=== PATIENT | male | born 1950 | race Caucasian/White ===

== ENCOUNTER 2017-01-18 15:56 | Emergency (ER) | payer OTHER ==
[~2017-01-18] VITALS: Ht 167.6 cm; Wt 81.5 kg
[~2017-01-18 15:56] MED LIST: GLIM4 PO; LISI-661 PO; METF500T4 PO; PIOG30TA2 PO
[2017-01-18 16:27] LABS: GLUCOSE,POINT OF CARE 186 MG/DL (70-110)
[2017-01-18] MEDS ORDERED: INSULIN SQ (16:27)
[2017-01-18 17:35] LABS: INFLUENZA TYPE B NEGATIVE FOR TYPE B (NEGATIVE)
[2017-01-18] MEDS ORDERED: CefTRIAXone SODIUM 1 GM/VIAL IM ONE (19:15)
[2017-01-18] MEDS ORDERED: LIDOCAINE HCL/PF 1% 2 ML VIAL IM ONE (19:15)
[2017-01-18] MEDS ORDERED: DEXAMETHASONE SOD PHOS 4 MG/ML 5 ML VIAL IM ONE (19:15)
[2017-01-18] MEDS ORDERED: IBUPROFEN 600 MG TABLET PO ONE (19:30)
[2017-01-18] MEDS ORDERED: ACETAMINOPHEN 500 MG TABLET PO ONE (19:30)
[2017-01-18 19:45] VITALS: BP 125/74
== END 2017-01-18 19:48 | disposition home or self-care (01) ==
LOC: EMS 15:59
DX: J40 Bronchitis, not specified as acute or chronic (principal); E11.9 Type 2 diabetes mellitus without complications; I10 Essential (primary) hypertension
CPT/HCPCS: 71010; 82962; 87804; 96372; 99285; J0696; J1100; J3490

== ENCOUNTER 2017-01-31 12:25 | Inpatient (IN) | payer OTHER ==
[~2017-01-31] VITALS: Ht 167.6 cm; Wt 77.9 kg
[~2017-01-31 12:25] MED LIST changes: +INSULIN SQ
[2017-01-31 12:51] LABS: GLUCOSE,POINT OF CARE 189 MG/DL (70-110)
[2017-01-31 14:17] LABS: GLUCOSE,POINT OF CARE 196 MG/DL (70-110)
[2017-01-31] MEDS ORDERED: SODIUM CHLORIDE 0.9% 100 ML ONE (14:35)
[2017-01-31] MEDS ORDERED: IOVERSOL 350 MG/ML 100 ML VIAL ONE (14:35)
[2017-01-31 15:05] LABS: LYMPHOCYTES # (AUTO) 1.3 K/uL (1.0-4.8)
[2017-01-31 15:06] LABS: BASOPHILS % (AUTO) 0.8 % (0.0-2.0); EOSINOPHILS % (AUTO) 4.7 % (1.0-6.0); HEMOGLOBIN 13.2 g/dL (13.5-17.5); LYMPHOCYTES % (AUTO) 18.8 % (22.0-44.0); MEAN CORPUSCULAR HEMOGLOBIN 25.9 pg (26.0-34.0); MEAN CORPUSCULAR VOLUME 78 fL (80-100); MONOCYTES # (AUTO) 0.5 K/uL (0.1-1.0); MONOCYTES % (AUTO) 7.3 % (2.0-9.0); NEUTROPHILS # (AUTO) 4.6 K/uL (1.8-7.7); NEUTROPHILS % (AUTO) 68.4 % (40.0-70.0); PLATELET COUNT (AUTO) 152 K/uL (150-450); RED BLOOD CELL COUNT(AUTO) 5.09 MIL/uL (4.50-5.90); RED CELL DISTRIBUTION WIDTH 13.6 % (11.5-14.5); WHITE BLOOD COUNT (AUTO) 6.7 K/uL (4.5-11.0)
[2017-01-31 15:12] LABS: ANION GAP 8 mmol/L (8-16); CALCIUM, TOTAL 8.9 mg/dL (8.8-10.5); CARBON DIOXIDE 29 mmol/L (22-29); CHLORIDE 101 mmol/L (98-107); CREATININE 0.91 mg/dL (0.60-1.30); GLOMERULAR FILTR. RATE CALC > 60 mL/min (>60); POTASSIUM 4.3 mmol/L (3.5-5.1); SODIUM SERUM 138 mmol/L (136-145); UREA NITROGEN, BLOOD 20 mg/dL (7-18)
[2017-01-31 15:15] LABS: PROTHROMBIN TIME 10.9 SEC (9.4-11.6)
[2017-01-31 15:37] LABS: ALANINE AMINOTRANSFERASE 26 U/L (12-78); ALBUMIN 3.5 g/dL (3.4-5.0); ASPARTATE AMINOTRANSFERASE 10 U/L (15-37); BILIRUBIN,TOTAL 0.4 mg/dL (0.1-1.0); CREATINE KINASE MB 2.1 ng/mL (0-5); CREATINE KINASE, TOTAL 92 U/L (39-308); TOTAL PROTEIN, SERUM 7.1 g/dL (6.4-8.2)
[2017-01-31 16:13] LABS: APPEARANCE,URINE CLEAR (CLEAR); GLUCOSE, URINE (UA) >=1000 mg/dL (NEGATIVE); KETONES,URINE NEGATIVE (NEGATIVE); LEUKOCYTE ESTERASE ,URINE SMALL (NEGATIVE); OCCULT BLOOD,URINE NEGATIVE (NEGATIVE); PROTEIN,URINE NEGATIVE (NEGATIVE)
[2017-01-31 16:15] LABS: ADD UA MICROSCOPIC YES
[2017-01-31] MEDS ORDERED: ASPIRIN 81 MG CHEWABLE TABLET PO ONE (16:15)
[2017-01-31 16:32] LABS: RBC,URINE None Seen /HPF (0-2); SQUAMOUS EPITHELIAL CELL,UR Few /LPF (None Seen); WBC,URINE 26-50 /HPF (0-5)
[2017-01-31] MEDS ORDERED: ACETAMINOPHEN 325 MG TABLET PO PRN (17:30)
[2017-01-31] MEDS ORDERED: ONDANSETRON HCL 4 MG/2 ML VIAL IVP PRN (17:30)
[2017-01-31] MEDS ORDERED: 0.9% SODIUM CHLORIDE 10 ML SYRINGE IVP PRN (17:30)
[2017-01-31 20:48] VITALS: BP 136/81
[2017-01-31] MEDS ORDERED: DEXTROSE 50%-WATER 25 GM/50 ML SYRINGE IVP PRN ×2 (23:00)
[2017-01-31] MEDS ORDERED: INSULIN REGULAR, HUMAN 100 UNITS/ML SQ PRN (23:00)
[2017-01-31] MEDS: INSULIN ASPART 100 UNITS/ML SQ PRN (23:06)
[2017-01-31] MEDS: ATORVASTATIN CALCIUM 10 MG TABLET PO SCH (23:07)
[2017-01-31 23:11] VITALS: BP 128/79
[2017-02-01 04:02] VITALS: BP 143/80
[2017-02-01] MEDS: INSULIN ASPART 100 UNITS/ML SQ PRN ×3 (05:44→21:27)
[2017-02-01 07:33] LABS: BASOPHILS # (AUTO) 0.04 K/uL (0.00-0.20); BASOPHILS % (AUTO) 0.6 % (0.0-2.0); EOSINOPHILS # (AUTO) 0.35 K/uL (0.00-0.70); EOSINOPHILS % (AUTO) 4.98 % (1.0-6.0); HEMATOCRIT 40.8 % (41-53); HEMOGLOBIN 13.7 g/dL (13.5-17.5); LYMPHOCYTES # (AUTO) 1.3 K/uL (1.0-4.8); LYMPHOCYTES % (AUTO) 18.9 % (22.0-44.0); MEAN CORPUSCULAR HEMOGLOBIN 26.3 pg (26.0-34.0); MEAN CORPUSCULAR HGB CONC 33.4 G/dL (31.0-37.0); MEAN CORPUSCULAR VOLUME 79 fL (80-100); MONOCYTES # (AUTO) 0.5 K/uL (0.1-1.0); MONOCYTES % (AUTO) 7.1 % (2.0-9.0); NEUTROPHILS # (AUTO) 4.8 K/uL (1.8-7.7); NEUTROPHILS % (AUTO) 68.5 % (40.0-70.0); PLATELET COUNT (AUTO) 150 K/uL (150-450); RED BLOOD CELL COUNT(AUTO) 5.19 MIL/uL (4.50-5.90); RED CELL DISTRIBUTION WIDTH 13.9 % (11.5-14.5)
[2017-02-01 07:35] VITALS: BP 144/89
[2017-02-01 07:42] LABS: HEMOGLOBIN A1C 9.9 % (4.5-6.2)
[2017-02-01 07:59] LABS: ALANINE AMINOTRANSFERASE 24 U/L (12-78); ALBUMIN 3.4 g/dL (3.4-5.0); ANION GAP 5 mmol/L (8-16); ASPARTATE AMINOTRANSFERASE 12 U/L (15-37); BILIRUBIN,TOTAL 0.6 mg/dL (0.1-1.0); CALCIUM, TOTAL 8.6 mg/dL (8.8-10.5); CARBON DIOXIDE 29 mmol/L (22-29); CHLORIDE 101 mmol/L (98-107); CHOL/HDL RATIO 3.7 (4.2-7.3); CREATININE 0.73 mg/dL (0.60-1.30); GLOMERULAR FILTR. RATE CALC > 60 mL/min (>60); POTASSIUM 3.9 mmol/L (3.5-5.1); SODIUM SERUM 135 mmol/L (136-145); TOTAL PROTEIN, SERUM 6.9 g/dL (6.4-8.2); UREA NITROGEN, BLOOD 16 mg/dL (7-18)
[2017-02-01] MEDS: MetFORMIN HCL 500 MG TABLET PO SCH ×2 (08:00→17:51)
[2017-02-01] MEDS: ASPIRIN 325 MG TABLET PO SCH (08:36)
[2017-02-01] MEDS: PIOGLITAZONE HCL 30 MG TABLET PO SCH (08:36)
[2017-02-01] MEDS: PANTOPRAZOLE SODIUM 40 MG DR TABLET PO SCH (08:36)
[2017-02-01] MEDS: LISINOPRIL 10 MG TABLET PO SCH (08:36)
[2017-02-01] MEDS: GLIMEPIRIDE 4 MG TABLET PO SCH ×2 (08:36→17:51)
[2017-02-01 09:47] LABS: THYROID STIMULATING HORMONE 2.33 uIU/mL (0.36-3.74)
[2017-02-01] MEDS ORDERED: MAGNESIUM SULFATE 2 GM in DEXTROSE 5%-WATER 50 ML IV ONE (11:15)
[2017-02-01 11:34] VITALS: BP 145/84
[2017-02-01 12:22] LABS: GLUCOSE,POINT OF CARE 169 MG/DL (70-110)
[2017-02-01] MEDS ORDERED: SODIUM CHLORIDE 0.9% 100 ML ONE (15:01)
[2017-02-01 15:28] VITALS: BP 124/70
[2017-02-01 18:12] LABS: GLUCOSE,POINT OF CARE 166 MG/DL (70-110)
[2017-02-01 18:12] LABS: GLUCOSE COMMENT 1 Received Meds; GLUCOSE,POINT OF CARE 178 MG/DL (70-110)
[2017-02-01 18:12] LABS: GLUCOSE,POINT OF CARE 146 MG/DL (70-110)
[2017-02-01 19:45] VITALS: BP 134/84
[2017-02-01] MEDS: ATORVASTATIN CALCIUM 10 MG TABLET PO SCH (21:23)
[2017-02-01 23:07] LABS: GLUCOSE COMMENT 1 Received Meds; GLUCOSE,POINT OF CARE 222 MG/DL (70-110)
[2017-02-01 23:47] VITALS: BP 130/76
[2017-02-02 04:19] VITALS: BP 129/72
[2017-02-02] MEDS: INSULIN ASPART 100 UNITS/ML SQ PRN ×3 (06:12→18:55)
[2017-02-02] MEDS: MetFORMIN HCL 500 MG TABLET PO SCH ×2 (08:00→18:00)
[2017-02-02 08:19] VITALS: BP 136/68
[2017-02-02] MEDS: LISINOPRIL 10 MG TABLET PO SCH (09:37)
[2017-02-02] MEDS: GLIMEPIRIDE 4 MG TABLET PO SCH ×2 (09:37→18:40)
[2017-02-02] MEDS: PIOGLITAZONE HCL 30 MG TABLET PO SCH (09:37)
[2017-02-02] MEDS: PANTOPRAZOLE SODIUM 40 MG DR TABLET PO SCH (09:38)
[2017-02-02] MEDS: ASPIRIN 325 MG TABLET PO SCH (09:38)
[2017-02-02 11:40] VITALS: BP 125/68
[2017-02-02] MEDS: ACETAMINOPHEN 325 MG TABLET PO PRN ×2 (11:58→20:37)
[2017-02-02 15:16] VITALS: BP 98/52
[2017-02-02 15:21] LABS: GLUCOSE COMMENT 1 Received Meds; GLUCOSE,POINT OF CARE 188 MG/DL (70-110)
[2017-02-02 20:17] VITALS: BP 95/53
[2017-02-02] MEDS: ATORVASTATIN CALCIUM 10 MG TABLET PO SCH (20:37)
[2017-02-03] VITALS (7 sets, daily range): BP systolic 109–126; BP diastolic 57–68
[2017-02-03 02:42] LABS: GLUCOSE,POINT OF CARE 110 MG/DL (70-110)
[2017-02-03] MEDS: INSULIN ASPART 100 UNITS/ML SQ PRN (05:58)
[2017-02-03] MEDS: PANTOPRAZOLE SODIUM 40 MG DR TABLET PO SCH (08:23)
[2017-02-03] MEDS: GLIMEPIRIDE 4 MG TABLET PO SCH ×2 (08:23→18:11)
[2017-02-03] MEDS: PIOGLITAZONE HCL 30 MG TABLET PO SCH (08:23)
[2017-02-03] MEDS: ASPIRIN 325 MG TABLET PO SCH (08:23)
[2017-02-03] MEDS: LISINOPRIL 10 MG TABLET PO SCH (08:24)
[2017-02-03] MEDS: MetFORMIN HCL 500 MG TABLET PO SCH ×2 (08:24→18:11)
[2017-02-03] MEDS: ACETAMINOPHEN 325 MG TABLET PO PRN (13:11)
[2017-02-03] MEDS ORDERED: MAGNESIUM HYDROXIDE SUSPENSION 30 ML UDCUP PO PRN (13:45)
[2017-02-03] MEDS ORDERED: BISACODYL 10 MG RECTAL RECTAL SUPPOSITORY PR PRN (13:45)
[2017-02-03] MEDS: ATORVASTATIN CALCIUM 10 MG TABLET PO SCH (20:40)
[2017-02-04 04:25] VITALS: BP 117/66
[2017-02-04 07:10] VITALS: BP 99/53
[2017-02-04 07:27] LABS: GLUCOSE COMMENT 1 Juice/Food/D50 Given; GLUCOSE,POINT OF CARE 77 MG/DL (70-110)
[2017-02-04] MEDS: MetFORMIN HCL 500 MG TABLET PO SCH (08:25)
[2017-02-04] MEDS: ASPIRIN 325 MG TABLET PO SCH (08:25)
[2017-02-04] MEDS: PIOGLITAZONE HCL 30 MG TABLET PO SCH (08:25)
[2017-02-04] MEDS: GLIMEPIRIDE 4 MG TABLET PO SCH (08:25)
[2017-02-04] MEDS: PANTOPRAZOLE SODIUM 40 MG DR TABLET PO SCH (08:25)
[2017-02-04] MEDS: LISINOPRIL 10 MG TABLET PO SCH (08:26)
[2017-02-04 11:15] VITALS: BP 126/65
[2017-02-04] MEDS: ACETAMINOPHEN 325 MG TABLET PO PRN (12:35)
[2017-02-04 14:37] LABS: GLUCOSE,POINT OF CARE 112 MG/DL (70-110)
[2017-02-04 15:26] VITALS: BP 107/55
[2017-02-05 19:41] LABS: GLUCOSE,POINT OF CARE 169 MG/DL (70-110)
[2017-02-05 19:47] LABS: GLUCOSE,POINT OF CARE 96 MG/DL (70-110)
[2017-02-05 19:47] LABS: GLUCOSE,POINT OF CARE 139 MG/DL (70-110)
[2017-02-05 19:47] LABS: GLUCOSE,POINT OF CARE 156 MG/DL (70-110)
[2017-02-05 19:47] LABS: GLUCOSE COMMENT 1 Received Meds; GLUCOSE,POINT OF CARE 147 MG/DL (70-110)
[2017-02-05 19:51] LABS: GLUCOSE,POINT OF CARE 97 MG/DL (70-110)
[2017-02-08 17:37] LABS: GLUCOSE,POINT OF CARE 58 MG/DL (70-110)
== END 2017-02-04 16:50 | DRG 65 ==
LOC: EMS 12:26 → 5S 18:14
PROVIDERS: ADMIT Family Medicine; ATTEND Family Medicine
DX: I63.9 Cerebral infarction, unspecified (principal); G81.91 Hemiplegia, unspecified affecting right dominant side; R47.01 Aphasia; E11.9 Type 2 diabetes mellitus without complications; I10 Essential (primary) hypertension; H91.90 Unspecified hearing loss, unspecified ear; Z79.4 Long term (current) use of insulin; Z79.899 Other long term (current) drug therapy; Z79.84 Long term (current) use of oral hypoglycemic drugs
CPT/HCPCS: 70496; 70551; 82607; 82746; 82962; 83036; 83735; 84443; 87086; 92507; 92523; 93005; 93306; 93880; 97112; 97116; 97162; 97166; 97530; 97535; 99285; J3475; J7050; J7060

== ENCOUNTER 2018-07-04 23:14 | Inpatient (IN) | payer MEDICARE, OTHER ==
[~2018-07-04] VITALS: Ht 167.6 cm; Wt 75.0 kg
[~2018-07-04 23:14] MED LIST changes: -METF500T4 PO; +METF500T6 PO; +PIOG30TA10 PO; -PIOG30TA2 PO
[2018-07-05] MEDS ORDERED: SODIUM CHLORIDE 0.9% 1,000 ML IV ONE
[2018-07-05] MEDS ORDERED: GLIM4 PO
[2018-07-05] MEDS ORDERED: MULT1TAB66 PO (00:02)
[2018-07-05] MEDS ORDERED: CA C1TAB74 PO (00:07)
[2018-07-05] MEDS ORDERED: ASPI-1213 PO (00:07)
[2018-07-05] MEDS ORDERED: ATOR10TA84 PO (00:07)
[2018-07-05 00:38] LABS: BASOPHILS % (AUTO) 0.5 % (0.0-2.0); EOSINOPHILS % (AUTO) 3.5 % (1.0-6.0); HEMATOCRIT 32.2 % (41-53); HEMOGLOBIN 11.1 g/dL (13.5-17.5); LYMPHOCYTES % (AUTO) 15.8 % (22.0-44.0); MEAN CORPUSCULAR HEMOGLOBIN 28.2 pg (26.0-34.0); MEAN CORPUSCULAR HGB CONC 34.6 G/dL (31.0-37.0); MEAN CORPUSCULAR VOLUME 82 fL (80-100); MONOCYTES # (AUTO) 0.7 K/uL (0.1-1.0); MONOCYTES % (AUTO) 10.5 % (2.0-9.0); NEUTROPHILS # (AUTO) 4.6 K/uL (1.8-7.7); NEUTROPHILS % (AUTO) 69.7 % (40.0-70.0); PLATELET COUNT (AUTO) 128 K/uL (150-450); RED BLOOD CELL COUNT(AUTO) 3.95 MIL/uL (4.50-5.90); RED CELL DISTRIBUTION WIDTH 14.3 % (11.5-14.5)
[2018-07-05 00:46] LABS: ANION GAP 7 mmol/L (8-16); CALCIUM, TOTAL 8.8 mg/dL (8.8-10.5); CARBON DIOXIDE 28 mmol/L (22-29); CHLORIDE 104 mmol/L (98-107); CREATININE 0.89 mg/dL (0.60-1.30); GLOMERULAR FILTR. RATE CALC > 60 mL/min (>60); GLUCOSE,RANDOM 77 mg/dL (70-110); POTASSIUM 3.7 mmol/L (3.5-5.1); SODIUM SERUM 139 mmol/L (136-145); UREA NITROGEN, BLOOD 23 mg/dL (7-18)
[2018-07-05 00:53] LABS: ALANINE AMINOTRANSFERASE 19 U/L (12-78); ALBUMIN 3.5 g/dL (3.4-5.0); ALKALINE PHOSPHATASE 59 U/L (46-116); ASPARTATE AMINOTRANSFERASE 12 U/L (15-37); BILIRUBIN,TOTAL 0.4 mg/dL (0.1-1.0); LIPASE 992 U/L (73-393); TOTAL PROTEIN, SERUM 6.8 g/dL (6.4-8.2)
[2018-07-05 01:14] LABS: GLUCOSE,POINT OF CARE 58 MG/DL (70-110)
[2018-07-05] MEDS ORDERED: DEXTROSE 50%-WATER 25 GM/50 ML SYRINGE IVP ONE (01:30)
[2018-07-05] MEDS ORDERED: DEXTROSE 10%-WATER 1,000 ML IV ONE (01:30)
[2018-07-05 02:08] LABS: GLUCOSE,POINT OF CARE 225 MG/DL (70-110)
[2018-07-05] MEDS ORDERED: BARIUM SULFATE 0.1% SUSPENSION 450 ML BOTTLE PO ONE (02:30)
[2018-07-05] MEDS ORDERED: 0.9% SODIUM CHLORIDE 10 ML SYRINGE IVP PRN (02:30)
[2018-07-05] MEDS ORDERED: ONDANSETRON HCL 4 MG/2 ML VIAL IVP PRN ×2 (02:30→03:00)
[2018-07-05] MEDS ORDERED: ACETAMINOPHEN 325 MG TABLET PO PRN ×2 (02:30→03:00)
[2018-07-05 02:50] LABS: TRIGLYCERIDES 54 mg/dL (15-150)
[2018-07-05] MEDS ORDERED: BISACODYL 10 MG RECTAL RECTAL SUPPOSITORY PR PRN (03:00)
[2018-07-05] MEDS ORDERED: ALBUTEROL SULFATE 2.5 MG/0.5 ML NEB SOLUTION NEB PRN (03:00)
[2018-07-05] MEDS ORDERED: IPRATROPIUM BROMIDE 0.5 MG/2.5 ML NEB SOLUTION NEB PRN (03:00)
[2018-07-05] MEDS ORDERED: MAGNESIUM HYDROXIDE SUSPENSION 30 ML UDCUP PO PRN (03:00)
[2018-07-05] MEDS ORDERED: ZOLPIDEM TARTRATE 5 MG TABLET PO PRN (03:00)
[2018-07-05] MEDS ORDERED: OxyCODONE HCL/ACETAMINOPHEN 5-325 MG TABLET PO PRN (03:00)
[2018-07-05] MEDS ORDERED: DEXTROSE 50%-WATER 25 GM/50 ML SYRINGE IVP PRN (03:00)
[2018-07-05] MEDS ORDERED: MORPHINE SULFATE 2 MG/ML SYRINGE IVP PRN (03:00)
[2018-07-05] MEDS ORDERED: IOVERSOL 350 MG/ML 100 ML VIAL ONE (03:49)
[2018-07-05] MEDS ORDERED: SODIUM CHLORIDE 0.9% 100 ML ONE (03:49)
[2018-07-05 04:19] VITALS: BP 153/75
[2018-07-05 07:40] VITALS: BP 120/67
[2018-07-05] MEDS: LISINOPRIL 10 MG TABLET PO SCH (07:53)
[2018-07-05] MEDS: PANTOPRAZOLE SODIUM 40 MG DR TABLET PO SCH (07:53)
[2018-07-05] MEDS: HEPARIN SODIUM,PORCINE 5,000 UNITS/ML VIAL SQ SCH ×2 (07:53→20:59)
[2018-07-05 08:39] LABS: BASOPHILS % (AUTO) 0.5 % (0.0-2.0); HEMATOCRIT 30.9 % (41-53); HEMOGLOBIN 10.7 g/dL (13.5-17.5); LYMPHOCYTES # (AUTO) 1.2 K/uL (1.0-4.8); MEAN CORPUSCULAR HEMOGLOBIN 28.2 pg (26.0-34.0); MEAN CORPUSCULAR HGB CONC 34.7 G/dL (31.0-37.0); MEAN CORPUSCULAR VOLUME 81 fL (80-100); MONOCYTES # (AUTO) 0.5 K/uL (0.1-1.0); MONOCYTES % (AUTO) 9.3 % (2.0-9.0); NEUTROPHILS # (AUTO) 3.3 K/uL (1.8-7.7); NEUTROPHILS % (AUTO) 63.2 % (40.0-70.0); PLATELET COUNT (AUTO) 128 K/uL (150-450); RED CELL DISTRIBUTION WIDTH 14.4 % (11.5-14.5)
[2018-07-05 08:54] LABS: ALANINE AMINOTRANSFERASE 18 U/L (12-78); ALBUMIN 3.4 g/dL (3.4-5.0); ALKALINE PHOSPHATASE 57 U/L (46-116); ANION GAP 7 mmol/L (8-16); ASPARTATE AMINOTRANSFERASE 12 U/L (15-37); BILIRUBIN,TOTAL 0.5 mg/dL (0.1-1.0); CALCIUM, TOTAL 8.3 mg/dL (8.8-10.5); CARBON DIOXIDE 27 mmol/L (22-29); CHLORIDE 103 mmol/L (98-107); CREATININE 0.67 mg/dL (0.60-1.30); GLOMERULAR FILTR. RATE CALC > 60 mL/min (>60); GLUCOSE,RANDOM 116 mg/dL (70-110); LIPASE 442 U/L (73-393); POTASSIUM 3.9 mmol/L (3.5-5.1); SODIUM SERUM 137 mmol/L (136-145); TOTAL PROTEIN, SERUM 6.6 g/dL (6.4-8.2); UREA NITROGEN, BLOOD 13 mg/dL (7-18)
[2018-07-05 11:41] VITALS: BP 134/69
[2018-07-05] MEDS: INSULIN LISPRO 100 UNITS/ML SQ PRN ×2 (12:11→21:12)
[2018-07-05 14:55] LABS: GLUCOSE,POINT OF CARE 219 MG/DL (70-110)
[2018-07-05 15:20] VITALS: BP 108/65
[2018-07-05 19:58] VITALS: BP 111/70
[2018-07-06] VITALS (7 sets, daily range): BP systolic 103–130; BP diastolic 64–79
[2018-07-06 06:33] LABS: BASOPHILS % (AUTO) 0.7 % (0.0-2.0); EOSINOPHILS % (AUTO) 8.1 % (1.0-6.0); HEMATOCRIT 33.2 % (41-53); HEMOGLOBIN 11.6 g/dL (13.5-17.5); LYMPHOCYTES # (AUTO) 1.3 K/uL (1.0-4.8); LYMPHOCYTES % (AUTO) 21.8 % (22.0-44.0); MEAN CORPUSCULAR HEMOGLOBIN 28.3 pg (26.0-34.0); MEAN CORPUSCULAR VOLUME 81 fL (80-100); MONOCYTES # (AUTO) 0.5 K/uL (0.1-1.0); MONOCYTES % (AUTO) 8.2 % (2.0-9.0); NEUTROPHILS # (AUTO) 3.5 K/uL (1.8-7.7); NEUTROPHILS % (AUTO) 61.2 % (40.0-70.0); PLATELET COUNT (AUTO) 127 K/uL (150-450); RED BLOOD CELL COUNT(AUTO) 4.11 MIL/uL (4.50-5.90); RED CELL DISTRIBUTION WIDTH 13.7 % (11.5-14.5)
[2018-07-06 07:11] LABS: ALANINE AMINOTRANSFERASE 19 U/L (12-78); ALBUMIN 3.4 g/dL (3.4-5.0); ALKALINE PHOSPHATASE 61 U/L (46-116); AMYLASE 80 U/L (25-115); ANION GAP 8 mmol/L (8-16); ASPARTATE AMINOTRANSFERASE 14 U/L (15-37); BILIRUBIN,TOTAL 0.5 mg/dL (0.1-1.0); CALCIUM, TOTAL 8.8 mg/dL (8.8-10.5); CARBON DIOXIDE 29 mmol/L (22-29); CHLORIDE 102 mmol/L (98-107); CHOL/HDL RATIO 2.3 (4.2-7.3); CHOLESTEROL 90 mg/dL (131-200); CREATININE 0.68 mg/dL (0.60-1.30); GLOMERULAR FILTR. RATE CALC > 60 mL/min (>60); GLUCOSE,RANDOM 102 mg/dL (70-110); HDL CHOLESTEROL 39 mg/dL (40-60); LDL CHOL (CALC.) 24 mg/dL (0-130); LIPASE 147 U/L (73-393); PHOSPHORUS 3.5 mg/dL (2.5-4.9); POTASSIUM 4.4 mmol/L (3.5-5.1); SODIUM SERUM 139 mmol/L (136-145); TOTAL PROTEIN, SERUM 6.9 g/dL (6.4-8.2); TRIGLYCERIDES 137 mg/dL (15-150); UREA NITROGEN, BLOOD 13 mg/dL (7-18)
[2018-07-06 07:19] LABS: HEMOGLOBIN A1C 4.9 % (4.5-6.2)
[2018-07-06] MEDS: HEPARIN SODIUM,PORCINE 5,000 UNITS/ML VIAL SQ SCH ×2 (08:35→20:36)
[2018-07-06] MEDS: PANTOPRAZOLE SODIUM 40 MG DR TABLET PO SCH (08:36)
[2018-07-06] MEDS: LISINOPRIL 10 MG TABLET PO SCH (08:36)
[2018-07-06] MEDS: INSULIN LISPRO 100 UNITS/ML SQ PRN ×3 (12:02→20:47)
[2018-07-06] MEDS ORDERED: MAGNESIUM SULFATE 4 GM/WATER 100 ML IV PRN (16:00)
[2018-07-06] MEDS ORDERED: MAGNESIUM OXIDE 400 MG TABLET PO PRN (16:00)
[2018-07-06] MEDS ORDERED: MAGNESIUM SULFATE 2 GM/WATER 50 ML IV PRN (16:00)
[2018-07-06] MEDS ORDERED: SODIUM CHLORIDE 0.9% 100 ML ONE (16:28)
[2018-07-06 17:18] LABS: FREE T4 (FREE THYROXINE) 1.23 ng/dL (0.76-1.46)
[2018-07-06 19:44] LABS: APPEARANCE,URINE CLEAR (CLEAR); BILIRUBIN,URINE NEGATIVE (NEGATIVE); GLUCOSE, URINE (UA) NEGATIVE (NEGATIVE); KETONES,URINE NEGATIVE (NEGATIVE); LEUKOCYTE ESTERASE ,URINE NEGATIVE (NEGATIVE); NITRATE,URINE NEGATIVE (NEGATIVE); OCCULT BLOOD,URINE NEGATIVE (NEGATIVE); PH,URINE 6.5 (5.0-8.0); PROTEIN,URINE NEGATIVE (NEGATIVE)
[2018-07-06 19:57] LABS: BACTERIA,URINE None Seen /HPF (None Seen); RBC,URINE None Seen /HPF (0-2); SQUAMOUS EPITHELIAL CELL,UR Rare /LPF (None Seen); WBC,URINE None Seen /HPF (0-5)
[2018-07-06 20:49] LABS: GLUCOMETER DEV NAME(LOC) 5S 1M; GLUCOSE,POINT OF CARE 108 MG/DL (70-110)
[2018-07-06 20:49] LABS: GLUCOMETER DEV NAME(LOC) 5S 1M; GLUCOSE,POINT OF CARE 197 MG/DL (70-110)
[2018-07-06 20:49] LABS: GLUCOMETER DEV NAME(LOC) 5S 1M; GLUCOSE,POINT OF CARE 163 MG/DL (70-110)
[2018-07-06 20:49] LABS: GLUCOMETER DEV NAME(LOC) 5S 1M; GLUCOSE,POINT OF CARE 115 MG/DL (70-110)
[2018-07-06 20:49] LABS: GLUCOMETER DEV NAME(LOC) 5S 1M; GLUCOSE,POINT OF CARE 131 MG/DL (70-110)
[2018-07-06 20:49] LABS: GLUCOMETER DEV NAME(LOC) 5S 1M; GLUCOSE,POINT OF CARE 97 MG/DL (70-110)
[2018-07-07 04:36] VITALS: BP 116/66
[2018-07-07 07:42] VITALS: BP 109/71
[2018-07-07 07:59] LABS: GLUCOMETER DEV NAME(LOC) 5S 2Q; GLUCOSE,POINT OF CARE 176 MG/DL (70-110)
[2018-07-07 07:59] LABS: GLUCOMETER DEV NAME(LOC) 5S 2Q; GLUCOSE,POINT OF CARE 116 MG/DL (70-110)
[2018-07-07 07:59] LABS: GLUCOMETER DEV NAME(LOC) 5S 2Q; GLUCOSE,POINT OF CARE 143 MG/DL (70-110)
[2018-07-07 07:59] LABS: GLUCOMETER DEV NAME(LOC) 5S 2Q; GLUCOSE,POINT OF CARE 106 MG/DL (70-110)
[2018-07-07] MEDS: LISINOPRIL 10 MG TABLET PO SCH (08:02)
[2018-07-07] MEDS: PANTOPRAZOLE SODIUM 40 MG DR TABLET PO SCH (08:02)
[2018-07-07] MEDS: HEPARIN SODIUM,PORCINE 5,000 UNITS/ML VIAL SQ SCH (08:02)
[2018-07-07 10:53] VITALS: BP 118/72
[2018-07-07] MEDS: INSULIN LISPRO 100 UNITS/ML SQ PRN (11:32)
[2018-07-08 20:19] LABS: GLUCOMETER DEV NAME(LOC) 5S 2Q; GLUCOSE,POINT OF CARE 135 MG/DL (70-110)
== END 2018-07-07 14:30 | disposition home or self-care (01) | DRG 438 ==
LOC: EMS 23:16 → 5S 07-05 02:00
PROVIDERS: ADMIT Internal Medicine; ATTEND Internal Medicine
DX: K85.90 Acute pancreatitis without necrosis or infection, unspecified (principal); G93.41 Metabolic encephalopathy; E11.649 Type 2 diabetes mellitus with hypoglycemia without coma; D69.6 Thrombocytopenia, unspecified; I10 Essential (primary) hypertension; E78.5 Hyperlipidemia, unspecified; D64.9 Anemia, unspecified; R74.8 Abnormal levels of other serum enzymes; E83.42 Hypomagnesemia; Z79.82 Long term (current) use of aspirin; Z86.73 Personal history of transient ischemic attack (TIA), and cerebral infarction without residual deficits; Z79.4 Long term (current) use of insulin; Z79.899 Other long term (current) drug therapy
CPT/HCPCS: 74177; 76705; 82306; 83036; 83735; 84100; 84439; 84443; 84478; 93005; 96361; 96374; 97116; 97162; 99291; J1644; J3475; J7050